=== PATIENT | male | born 1990 | race Hispanic/Latino ===

== ENCOUNTER 2017-02-03 08:49 | Emergency (ER) | payer OTHER ==
[~2017-02-03] VITALS: Ht 170.2 cm; Wt 88.5 kg
--- NOTE | 2017-02-03 09:52 | ED ANKLE/FOOT INJURY COMPLAINT ---
History of Present Illness General Chief Complaint: Foot or Ankle Injury Stated Complaint: R ANKLE INJURY Source: patient Exam Limitations: no limitations Vital Signs & Intake/Output Vital Signs & Intake/Output Vital Signs Date Time Temp Pulse Resp B/P Pulse O2 O2 Flow FiO2 Ox Delivery Rate 02/03 1030 96.9 72 20 107/57 99 Room Air Room Air 02/03 0858 98.4 68 14 98 Room Air Allergies Coded Allergies: No Known Allergies (02/03/17) Reconcile Medications Diclofenac Sodium 75 MG TABLET.DR 1 TAB PO BID PRN PAIN/SWELLING Tramadol HCl 50 MG TABLET 1-2 TAB PO Q6 PRN pain Triage Note: 26 Y/O MALE C/O R ANKLE S/P "ROLLING IT" THIS AM WHILE AT WORK. DENIES OTHER INJURIES OR COMPLAINTS. MED WITH 400MG IBUPROPHEN IN TRIAGE. XRAY ORDERED. WORKMANS COMP COMPLETED. Triage Nurses Notes Reviewed? yes HPI: Patient is a 21 year old male presents complaining of right ankle pain. Patient was at work when he tripped over a piece of wire causing an inversion injury to his right ankle. Injury occurred prior to arrival. Pain is severe, worsens with movement and palpation. Patient was administered ibuprofen triage with no significant improvement. Patient denies head injury, neck pain, back pain, numbness. (FRIDA TRUJILLO) Past History Travel History Traveled to [place] past 21 day No Medical History Any Pertinent Medical History? none Neurological: NONE EENT: NONE Cardiovascular: NONE Respiratory: NONE Gastrointestinal: NONE Hepatic: NONE Renal: NONE Musculoskeletal: NONE Psychiatric: NONE Endocrine: NONE Blood Disorders: NONE Cancer(s): NONE USER EXPERIENCE DESIGNER/Reproductive: NONE Surgical History Surgical History: non-contributory Psychosocial History What is your primary language Welsh Tobacco Use: Current Daily Use Daily Tobacco Use Amount/Type: =< 4 Cigarettes daily Family History Hx Contributory? No (FRIDA TRUJILLO) Review of Systems Review of Systems Constitutional: Denies: chills, fever. EENTM: Reports: no symptoms. Respiratory: Denies: cough, short of breath. Cardiovascular: Denies: chest pain. GI: Denies: abdominal pain. Musculoskeletal: Reports: see HPI. Skin: Reports: no symptoms. Neurological/Psychological: Denies: numbness, paresthesia. Hematologic/Endocrine: Denies: bruising, bleeding. Immunologic/Allergic: Denies: splenectomy. (FRIDA TRUJILLO) Physical Exam Physical Exam General Appearance: well developed/nourished, alert, awake Head: atraumatic, normal appearance Eyes: Bilateral: normal appearance. Ears, Nose, Throat: hearing grossly normal Neck: normal inspection, full range of motion Cardiovascular/Respiratory: no respiratory distress Back: normal inspection, normal range of motion Leg/Knee/Thigh Left: normal range of motion, normal inspection Leg/Knee/Thigh Right: normal range of motion, normal inspection Ankle Right: TENDERNESS RIGHT MEDIAL AND LATERAL MALLEOLUS. mINIMAL SWELLING. mILD TENDERNESS AT THE PROXIMAL BASE OF THE FIFTH METATARSAL. JOINT STABLE Foot Right: normal inspection, normal range of motion Neuro/Vascular: normal motor function, normal sensation Tendon: normal tendon function (FRIDA TRUJILLO) Progress Differential Diagnosis: fracture, dislocation, sprain, contusion Plan of Care: Orders Procedure Date/time Status Durable Medical Equipment 02/03 1011 Active Durable Medical Equipment 02/03 1000 Active Results x-rays discussed with patient. Air splint placed by nursing staff. (FRIDA TRUJILLO) Diagnostic Imaging: Viewed by Me: Radiology Read. Discussed w/RAD: Radiology Read. Radiology Impression: PATIENT: JANAY DOUGLAS PRESENT AGE: 27 PATIENT ACCOUNT NO: [id number] : 91 LOCATION: [facility] ORDERING PHYSICIAN: SARAH DUNLAP DO SERVICE DATE: 02/03/17 EXAM TYPE: RAD - XRY-ANKLE 3 OR MORE VIEWS R EXAMINATION: XR ANKLE, RIGHT CLINICAL INFORMATION: Pain after rolling injury of ankle at work today. Evaluate for fracture. COMPARISON: None TECHNIQUE: AP, lateral, and mortise views of the right ankle. FINDINGS: The talar dome is well-positioned within the intact ankle mortise. Ankle joint space and tibiofibular syndesmotic space are normal. No acute fracture or malalignment. No significant soft tissue swelling is seen. No ankle joint effusion. IMPRESSION: No acute osseous injury at the right ankle. DICTATED BY: ZAINAB RODRÍGUEZ MD DATE/TIME DICTATED:02/03/17953 BRIDGE TOLL COLLECTOR:AL DATE/TIME TRANSCRIBED:02/03/17953 CONFIDENTIAL, DO NOT COPY WITHOUT APPROPRIATE AUTHORIZATION. <Electronically signed in Other Vendor System> SIGNED BY: ZAINAB RODRÍGUEZ MD 02/03/17 0959 (FRIDA TRUJILLO) Departure Departure Time of Disposition: 1012 Disposition: HOME OR SELF CARE Condition: Stable Clinical Impression Primary Impression: Right ankle sprain Qualifiers: Encounter type: initial encounter Involved ligament of ankle: unspecified ligament Qualified Code: S93.401A - Sprain of unspecified ligament of right ankle, initial encounter Referrals: PATIENT HAS NO PRIMARY CARE DR (PCP/Family) Additional Instructions: Rest, elevate, wear air splint for support. Weightbearing as tolerated. Follow -up with occupational medicine tomorrow for further evaluation, call for appointment. Return to the emergency department if worsening of symptoms. Departure Forms: Customer Survey Employee Industrial Accident General Discharge Information Prescriptions: Current Visit Scripts Diclofenac Sodium 1 TAB PO BID PRN PAIN/SWELLING #15 TAB Tramadol HCl 1-2 TAB PO Q6 PRN pain #15 TAB (FRIDA TRUJILLO) PA/JEWELRY SALESPERSON Co-Sign Statement Statement: ED Attending supervision documentation- [] I saw and evaluated the patient. I have also reviewed all the pertinent lab results and diagnostic results. I agree with the findings and the plan of care as documented in the PA's/JEWELRY SALESPERSON's documentation. [X] I have reviewed the ED Record and agree with the PA's/JEWELRY SALESPERSON's documentation. [] Additions or exceptions (if any) to the PAs/JEWELRY SALESPERSON's note and plan are summarized below: [] (SARAH DUNLAP DO) Procedures Splinting Location: right ankle Pre-Made Type: aircast Splint Applied By: splint applied by other Pre-Proc Neuro Vasc Exam: normal Post-Proc Neuro Vasc Exam: normal (FRIDA TRUJILLO)
--- NOTE | 2017-02-03 09:59 | RADIOLOGY REPORT ---
EXAMINATION: XR ANKLE, RIGHT CLINICAL INFORMATION: Pain after rolling injury of ankle at work today. Evaluate for fracture. COMPARISON: None TECHNIQUE: AP, lateral, and mortise views of the right ankle. FINDINGS: The talar dome is well-positioned within the intact ankle mortise. Ankle joint space and tibiofibular syndesmotic space are normal. No acute fracture or malalignment. No significant soft tissue swelling is seen. No ankle joint effusion. IMPRESSION: No acute osseous injury at the right ankle.
[2017-02-03] MEDS ORDERED: DICLOFENAC SODI75 M2 PO (10:14)
[2017-02-03] MEDS ORDERED: TRAMADOL HCL50 M1 PO (10:14)
[2017-02-03 10:30] VITALS: BP 107/57
== END 2017-02-03 10:37 ==
LOC: ERH 08:49
DX: S93.401A Sprain of unspecified ligament of right ankle, initial encounter (principal); W22.8XXA Striking against or struck by other objects, initial encounter; Y92.9 Unspecified place or not applicable; Y93.9 Activity, unspecified
CPT/HCPCS: 73610-RT